=== PATIENT | male | born 1980 | race African-American/Black ===

== ENCOUNTER 2016-12-03 12:42 | Emergency (ER) | payer SELFPAY ==
[~2016-12-03] VITALS: Ht 188 cm; Wt 87.0 kg
[2016-12-03 13:03] VITALS: BP 100/69
== END 2016-12-03 14:18 | disposition home or self-care (01) ==
LOC: ER 14:01
DX: S01.01XA Laceration without foreign body of scalp, initial encounter (principal); W22.8XXA Striking against or struck by other objects, initial encounter; Y93.89 Activity, other specified; Y92.9 Unspecified place or not applicable; Y99.8 Other external cause status
CPT/HCPCS: 12001; 99283; Z7610; 99282

== ENCOUNTER 2021-06-02 14:44 | Emergency (ER) | payer BC ==
[~2021-06-02] VITALS: Ht 188 cm; Wt 91.0 kg
[2021-06-02] MEDS ORDERED: IBUPROFEN 600MG TABLET PO STA (18:52)
[2021-06-02 19:12] VITALS: BP 142/97
[2021-06-02 19:49] LABS: CLARITY URINE CLEAR (CLEAR); COLOR URINE DARK YELLOW (YELLOW); KETONES URINE NEGATIVE (NEGATIVE); LEUKOCYTE ESTERASE URINE TRACE (NEGATIVE); NITRITE URINE NEGATIVE (NEGATIVE); OCCULT BLOOD URINE NEGATIVE (NEGATIVE); PH URINE 6.5 (4.5-8.0); PROTEIN URINE TRACE (NEGATIVE); SPECIFIC GRAVITY URINE 1.017 (1.005-1.030)
== END 2021-06-02 20:54 | disposition home or self-care (01) ==
LOC: ER 14:44
DX: D17.79 Benign lipomatous neoplasm of other sites (principal); J45.909 Unspecified asthma, uncomplicated
CPT/HCPCS: 71045; 81003; 99284; Z7610

== ENCOUNTER 2021-11-08 19:55 | Emergency (ER) | payer BC ==
[~2021-11-08] VITALS: Ht 188 cm; Wt 94.4 kg
[2021-11-08] MEDS ORDERED: ACETAMINOPHEN 325MG TABLET PO ONE (20:15)
[2021-11-08] MEDS ORDERED: KETOROLAC 60MG/2ML VIAL IM ONE (21:45)
[2021-11-08 22:08] VITALS: BP 143/81
[2021-11-08 22:22] LABS: BASOPHILS % 0.9 % (0.0-2.0); EOSINOPHILS % 3.3 % (0.0-5.0); HEMATOCRIT. 47.4 % (42.0-52.0); HEMOGLOBIN. 15.8 g/dL (14.0-18.0); LYMPHOCYTES % 23.4 % (20.0-50.0); MEAN CORPUSCULAR HEMOGLOBIN 28.5 pg (28.0-32.0); MEAN CORPUSCULAR VOLUME 85.4 fL (80.0-94.0); MEAN PLATELET VOLUME 7.9 fl (7.4-10.4); MONOCYTES % 6.7 % (2.0-8.0); NEUTROPHILS % 65.7 % (40.0-76.0); PLATELET 407 x1000/uL (130-400); RED BLOOD CELL COUNT 5.55 mill/uL (4.7-6.1); RED CELL DISTRIBUTION WIDTH 13.9 % (11.6-14.6)
[2021-11-08 22:28] LABS: CHLORIDE 106 mEq/L (98-107)
[2021-11-08] MEDS ORDERED: HYDR-4001 MT (22:54)
== END 2021-11-08 23:35 | disposition home or self-care (01) ==
LOC: ER 19:55
DX: R10.32 Left lower quadrant pain (principal); R07.89 Other chest pain; R00.0 Tachycardia, unspecified; V43.52XA Car driver injured in collision with other type car in traffic accident, initial encounter; Y93.89 Activity, other specified; Y92.488 Other paved roadways as the place of occurrence of the external cause
CPT/HCPCS: 36415; 71045; 74176; 80053; 85025; 93005; 96372; 99285; J1885

== ENCOUNTER 2023-10-19 10:01 | Emergency (ER) | payer BC ==
[~2023-10-19] VITALS: Ht 188 cm; Wt 98.0 kg
[~2023-10-19 10:01] MED LIST: HYDR-4001 MT
[2023-10-19 10:17] VITALS: TEMP 98.2; O2SAT 98
[2023-10-19] MEDS ORDERED: BACITRACIN ZINC OINT UDPKT TOP ONE (10:30)
[2023-10-19] MEDS ORDERED: LIDOCAINE HCL/PF 1% 10 MG/ML 5ML VIAL INFIL ONE (10:30)
[2023-10-19] MEDS ORDERED: TETANUS, DIPHTHERIA, PERTUSSIS VAC/PF 0.5ML (>10YR OLD) IM ONE (10:30)
[2023-10-19] MEDS ORDERED: KETOROLAC 15MG/ML VIAL IM ONE (10:30)
[2023-10-19] MEDS ORDERED: KETOROLAC 15MG/ML VIAL IM NR (12:15)
[2023-10-19] MEDS: TETANUS, DIPHTHERIA, PERTUSSIS VAC/PF 0.5ML (>10YR OLD) IM ONE (13:19)
[2023-10-19 13:20] VITALS: BP 130/97; PULSE 99; RESP 18
[2023-10-19] MEDS: BACITRACIN ZINC OINT UDPKT TOP NR (13:20)
[2023-10-19] MEDS: KETOROLAC 30MG/ML VIAL IM SCH (13:20)
[2023-10-19] MEDS: LIDOCAINE HCL/PF 1% 10 MG/ML 5ML VIAL INFIL NR (13:20)
[2023-10-19] MEDS ORDERED: AMOX1TAB16 MT (13:35)
== END 2023-10-19 14:01 | disposition home or self-care (01) ==
LOC: ER 10:01
DX: L03.012 Cellulitis of left finger (principal)
CPT/HCPCS: 90715; 10060; 90471; 96372; 99284; J1885; J3490; Z7610 ×2

== ENCOUNTER 2024-05-28 16:03 | Emergency (ER) | payer BC ==
[~2024-05-28] VITALS: Ht 188 cm; Wt 97.5 kg
[~2024-05-28 16:03] MED LIST changes: +AMOX1TAB16 MT
[2024-05-28 16:11] VITALS: O2SAT 99
[2024-05-28 18:00] VITALS: BP 124/84; PULSE 80; RESP 16; TEMP 36.83628; O2SAT 99
== END 2024-05-28 18:38 | disposition home or self-care (01) ==
LOC: ER 16:03
DX: S01.112D Laceration without foreign body of left eyelid and periocular area, subsequent encounter (principal); X58.XXXD Exposure to other specified factors, subsequent encounter
CPT/HCPCS: 99281

== ENCOUNTER 2024-12-11 13:40 | Inpatient (IN) | payer BC ==
[~2024-12-11] VITALS: Ht 188 cm; Wt 97.7 kg
[2024-12-11] MEDS: SODIUM CHLORIDE 0.9% 1,000 ML IV ONE ×2 (14:55→17:33)
[2024-12-11 15:00] LABS: BASOPHILS % 0.3 % (0.0-2.0); EOSINOPHILS % 0.4 % (0.0-5.0); HEMATOCRIT. 50.9 % (42.0-52.0); HEMOGLOBIN. 17.1 g/dL (14.0-18.0); LYMPHOCYTES % 11.6 % (20.0-50.0); MEAN CORPUSCULAR HEMOGLOBIN 27.9 pg (28.0-32.0); MEAN CORPUSCULAR HGB CONC 33.6 g/dL (31.0-37.0); MEAN CORPUSCULAR VOLUME 83.2 fL (80.0-94.0); MEAN PLATELET VOLUME 8.2 fl (7.4-10.4); MONOCYTES % 7.8 % (2.0-8.0); NEUTROPHILS % 79.9 % (40.0-76.0); PLATELET 137 x1000/uL (130-400); RED BLOOD CELL COUNT 6.12 mill/uL (4.7-6.1); RED CELL DISTRIBUTION WIDTH 13.1 % (11.6-14.6); WHITE BLOOD COUNT 10.3 x1000/uL (4.5-11.0)
[2024-12-11 15:05] LABS: POTASSIUM 4.3 mEq/L (3.5-5.1)
[2024-12-11 15:06] LABS: CALCIUM 9.5 mg/dL (8.7-10.4)
[2024-12-11 15:12] LABS: TROPONIN I HIGH SENSITIVITY 17 ng/L (3.0-53)
[2024-12-11 15:14] LABS: D-DIMER 9.51 mg/L FEU (<0.50); PARTIAL THROMBOPLASTIN TIME 24.4 sec (23.4-31.0); PROTHROMBIN TIME 10.8 sec (9.6-11.0)
[2024-12-11 15:20] LABS: CREATININE 1.6 mg/dL (0.6-1.3)
[2024-12-11] MEDS: IOHEXOL-350 100 ML BOTTLE ONE (16:56)
[2024-12-11] MEDS ORDERED: ONDANSETRON HCL 4MG/2ML INJ IV PRN (17:15)
[2024-12-11] MEDS ORDERED: DOCUSATE SODIUM 100MG CAPSULE PO PRN (17:15)
[2024-12-11] MEDS ORDERED: IPRATROPIUM/ALBUTEROL 0.5-3(2.5)MG/3ML NEB HHN PRN (17:15)
[2024-12-11] MEDS ORDERED: DEXTROSE 50% WATER 50ML SYRINGE IV PRN (17:15)
[2024-12-11] MEDS ORDERED: ACETAMINOPHEN 325MG TABLET PO PRN ×2 (17:15)
[2024-12-11] MEDS: SODIUM CHLORIDE 0.9% 1,000 ML IV SCH (17:35)
[2024-12-11 17:59] LABS: PHOSPHORUS 2.1 mg/dL (2.5-4.9)
[2024-12-11 18:35] VITALS: BP 126/71; PULSE 120; RESP 15; TEMP 37
[2024-12-11 20:00] VITALS: BP 132/93; PULSE 104; RESP 16; TEMP 36.8; O2SAT 97
[2024-12-11] MEDS: BLOOD SUGAR DIAGNOSTIC STRIP TEST SCH (21:20)
[2024-12-12] VITALS: BP 146/94; PULSE 104; RESP 17; TEMP 36.9; O2SAT 95
[2024-12-12 00:31] LABS: CREATINE KINASE MB FRACTION 2.3 ng/mL (0.5-3.6)
[2024-12-12 04:00] VITALS: BP 135/97; PULSE 95; RESP 20; TEMP 36.9; O2SAT 95
[2024-12-12 06:17] LABS: BASOPHILS % 0.8 % (0.0-2.0); EOSINOPHILS % 1.7 % (0.0-5.0); HEMOGLOBIN. 14.8 g/dL (14.0-18.0); LYMPHOCYTES % 19.2 % (20.0-50.0); MEAN CORPUSCULAR HEMOGLOBIN 27.4 pg (28.0-32.0); MEAN PLATELET VOLUME 8.3 fl (7.4-10.4); MONOCYTES % 11.8 % (2.0-8.0); NEUTROPHILS % 66.5 % (40.0-76.0); PLATELET 127 x1000/uL (130-400); RED BLOOD CELL COUNT 5.43 mill/uL (4.7-6.1); RED CELL DISTRIBUTION WIDTH 13.1 % (11.6-14.6); WHITE BLOOD COUNT 7.1 x1000/uL (4.5-11.0)
[2024-12-12 06:20] LABS: CHLORIDE 104 mEq/L (98-107); POTASSIUM 3.6 mEq/L (3.5-5.1); SODIUM 140 mEq/L (136-145)
[2024-12-12 06:21] LABS: CARBON DIOXIDE 24 mEq/L (21-32)
[2024-12-12 06:25] LABS: CREATINE KINASE MB FRACTION 1.9 ng/mL (0.5-3.6)
[2024-12-12 06:26] LABS: GLUCOSE 113 mg/dL (70-105); TRIGLYCERIDE 171 mg/dL (0-150); UREA NITROGEN BLOOD 11 mg/dL (9-23)
[2024-12-12 06:27] LABS: LDL CHOLESTEROL 75 mg/dL (5-100)
[2024-12-12 06:28] LABS: CHOLESTEROL 143 mg/dL (<200); HDL CHOLESTEROL 42 mg/dL (>55); T4 FREE 0.95 ng/dL (0.89-1.76)
[2024-12-12 06:30] LABS: THYROID STIMULATING HORMONE 1.66 uIU/mL (0.55-4.78)
[2024-12-12 06:40] LABS: CALCIUM 8.7 mg/dL (8.7-10.4)
[2024-12-12 08:00] VITALS: BP 152/101; PULSE 92; RESP 16; TEMP 36.7; O2SAT 96
[2024-12-12] MEDS: ENOXAPARIN 40MG/0.4ML SYR SUBCUT SCH (08:45)
[2024-12-12] MEDS: CLONIDINE 0.1MG TABLET PO PRN (09:06)
[2024-12-12] MEDS: PANTOPRAZOLE SODIUM 40 MG/VIAL IV SCH (09:17)
[2024-12-12 12:00] VITALS: BP 113/82; PULSE 98; RESP 21; TEMP 36.7; O2SAT 96
[2024-12-12 16:00] VITALS: BP 133/89; PULSE 84; RESP 17; TEMP 36.7; O2SAT 95
[2024-12-12 20:00] VITALS: BP 130/80; PULSE 86; RESP 18; TEMP 37.4; O2SAT 97
[2024-12-13] VITALS: BP 130/82; PULSE 86; RESP 21; TEMP 36.9; O2SAT 95
[2024-12-13 04:00] VITALS: BP 123/91; PULSE 75; RESP 12; TEMP 36.9; O2SAT 97
[2024-12-13 07:12] LABS: CARBON DIOXIDE 27 mEq/L (21-32); CHLORIDE 105 mEq/L (98-107); POTASSIUM 3.8 mEq/L (3.5-5.1); SODIUM 142 mEq/L (136-145)
[2024-12-13 07:14] LABS: CALCIUM 8.6 mg/dL (8.7-10.4)
[2024-12-13 07:15] LABS: HEMATOCRIT 40.5 % (42.0-52.0); HEMOGLOBIN 13.6 g/dL (14.0-18.0); MEAN CORPUSCULAR HGB CONC 33.6 g/dL (31.0-37.0); MEAN CORPUSCULAR VOLUME 83.3 fL (80.0-94.0); PLATELET 102 x1000/uL (130-400); RED BLOOD CELL COUNT 4.86 mill/uL (4.7-6.1); RED CELL DISTRIBUTION WIDTH 12.9 % (11.6-14.6); WHITE BLOOD COUNT 6.7 x1000/uL (4.5-11.0)
[2024-12-13 07:17] LABS: CREATININE 0.8 mg/dL (0.6-1.3)
[2024-12-13 07:18] LABS: GLUCOSE 101 mg/dL (70-105); UREA NITROGEN BLOOD 10 mg/dL (9-23)
[2024-12-13 08:00] VITALS: BP 142/96; PULSE 71; RESP 11; TEMP 36.7; O2SAT 99
[2024-12-13] MEDS ORDERED: AMLO5TAB5 MT (10:56)
[2024-12-13 11:29] VITALS: BP 142/96; PULSE 99; TEMP 98; O2SAT 100
== END 2024-12-13 12:06 | disposition home or self-care (01) | DRG 392 ==
LOC: ER 13:40 → 3WST 16:33 → EDBEDREQ 16:41 → EDBEDREQTM 16:41
PROVIDERS: ADMIT Internal Medicine; ATTEND Internal Medicine
DX: K52.9 Noninfective gastroenteritis and colitis, unspecified (principal); N17.9 Acute kidney failure, unspecified; E86.0 Dehydration; D75.1 Secondary polycythemia; I48.0 Paroxysmal atrial fibrillation; J45.909 Unspecified asthma, uncomplicated; I95.9 Hypotension, unspecified; F10.10 Alcohol abuse, uncomplicated; Y90.9 Presence of alcohol in blood, level not specified; Z82.49 Family history of ischemic heart disease and other diseases of the circulatory system; Z79.899 Other long term (current) drug therapy
CPT/HCPCS: 36415; 71045; 71275; 74174; 80048; 80061; 82550; 82553; 82962; 83036; 83605; 83735; 83880; 84100; 84145; 84439; 84443; 84484; 85025; 85027; 85379; 86850; 86900; 96360; 96361; 99291; A4606; J1650; J2470; J7030; Q9967

== ENCOUNTER 2025-03-03 07:47 | Inpatient (IN) | payer BC ==
[~2025-03-03] VITALS: Ht 188 cm; Wt 98.4 kg
[~2025-03-03 07:47] MED LIST changes: +AMLO5TAB5 MT; -AMOX1TAB16 MT; -HYDR-4001 MT
[2025-03-03] MEDS ORDERED: FAMOTIDINE 20MG/2ML VIAL IV ONE (08:30)
[2025-03-03] MEDS ORDERED: KETOROLAC 15MG/ML VIAL IV ONE (08:30)
[2025-03-03] MEDS ORDERED: MAGNESIUM/ALUMINUM HYDROXIDE/SIMETHICONE 30ML UDC PO ONE (08:30)
[2025-03-03] MEDS ORDERED: ONDANSETRON 4MG ODT PO ONE (08:30)
[2025-03-03] MEDS ORDERED: ACETAMINOPHEN 325MG TABLET PO ONE (08:30)
[2025-03-03 08:33] LABS: BASOPHILS % 0.8 % (0.0-2.0); EOSINOPHILS % 0.1 % (0.0-5.0); HEMATOCRIT. 45.6 % (42.0-52.0); HEMOGLOBIN. 14.6 g/dL (14.0-18.0); LYMPHOCYTES % 10.8 % (20.0-50.0); MEAN PLATELET VOLUME 7.8 fl (7.4-10.4); MONOCYTES % 3.9 % (2.0-8.0); NEUTROPHILS % 84.4 % (40.0-76.0); PLATELET 286 x1000/uL (130-400); RED BLOOD CELL COUNT 5.12 mill/uL (4.7-6.1); RED CELL DISTRIBUTION WIDTH 15.9 % (11.6-14.6)
[2025-03-03] MEDS: SODIUM CHLORIDE 0.9% 1,000 ML IV ONE (08:41)
[2025-03-03] MEDS: ONDANSETRON 4MG ODT PO NR (08:58)
[2025-03-03] MEDS: KETOROLAC 15MG/ML VIAL IV NR (08:58)
[2025-03-03] MEDS: MAGNESIUM/ALUMINUM HYDROXIDE/SIMETHICONE 30ML UDC PO NR (08:58)
[2025-03-03] MEDS: ACETAMINOPHEN 325MG TABLET PO NR (08:58)
[2025-03-03 09:02] LABS: CREATININE 1.2 mg/dL (0.6-1.3); TROPONIN I HIGH SENSITIVITY 4 ng/L (3.0-53); UREA NITROGEN BLOOD 13 mg/dL (9-23)
[2025-03-03 09:02] LABS: CLARITY URINE CLEAR (CLEAR); COLOR URINE YELLOW (YELLOW); GLUCOSE URINE NEGATIVE (NEGATIVE); KETONES URINE 3+ (NEGATIVE); LEUKOCYTE ESTERASE URINE NEGATIVE (NEGATIVE); NITRITE URINE NEGATIVE (NEGATIVE); OCCULT BLOOD URINE 1+ (NEGATIVE); PH URINE 5.0 (4.5-8.0); PROTEIN URINE 1+ (NEGATIVE); SPECIFIC GRAVITY URINE 1.015 (1.005-1.030); UROBILINOGEN URINE 0.2 E.U./dL (0.2-1.0)
[2025-03-03 09:04] LABS: ASPARTATE AMINOTRANSFERASE 86 IU/L (<34); BILIRUBIN DIRECT 0.3 mg/dL (<=3.0); BILIRUBIN TOTAL 0.8 mg/dL (0.1-1.0); PROTEIN TOTAL 7.8 g/dL (6.0-8.3)
[2025-03-03] MEDS: LORAZEPAM 2MG/ML UD SYRINGE IV NR (09:32)
[2025-03-03 09:44] LABS: BACTERIA URINE NONE SEEN; HYALINE CASTS URINE 0-5 /lpf; RBC URINE 0-2 /hpf (0-2); SQUAMOUS EPITHELIAL CELL URINE RARE /lpf (RARE/1+); WBC URINE 0-2 /hpf (0-2); YEAST URINE NONE SEEN
[2025-03-03] MEDS: FAMOTIDINE 20MG/2ML VIAL IV NR (09:44)
[2025-03-03] MEDS: FOLIC ACID 1 MG, THIAMINE HCL 100 MG, MVI, ADULT NO.1 10 ML in DEXTROSE 5% WATER 1,000 ML IV ONE (09:44)
[2025-03-03] MEDS ORDERED: ONDANSETRON HCL 4MG/2ML INJ IV PRN (10:15)
[2025-03-03] MEDS ORDERED: LACTATED RINGERS 1,000 ML IV ONE (10:30)
[2025-03-03] MEDS ORDERED: ACETAMINOPHEN 325MG TABLET PO PRN ×2 (10:45)
[2025-03-03] MEDS ORDERED: DOCUSATE SODIUM 100MG CAPSULE PO PRN (10:45)
[2025-03-03] MEDS ORDERED: CLONIDINE 0.1MG TABLET PO PRN (10:45)
[2025-03-03] MEDS ORDERED: GUAIFENESIN 200MG/10ML SUGAR FREE UDC PO PRN (10:45)
[2025-03-03] MEDS ORDERED: IPRATROPIUM/ALBUTEROL 0.5-3(2.5)MG/3ML NEB HHN PRN (10:45)
[2025-03-03] MEDS ORDERED: MAGNESIUM/ALUMINUM HYDROXIDE/SIMETHICONE 30ML UDC PO PRN (10:45)
[2025-03-03 10:50] LABS: TROPONIN I HIGH SENSITIVITY 6 ng/L (3.0-53)
[2025-03-03 10:51] LABS: ETHANOL BLOOD 42 mg/dL (<10)
[2025-03-03 10:54] LABS: PHOSPHORUS 4.5 mg/dL (2.5-4.9)
[2025-03-03 12:00] VITALS: BP 147/83; PULSE 112; RESP 18; TEMP 36.6; O2SAT 98
[2025-03-03] MEDS: MULTIVITAMINS,THER W-MINERALS TABLET PO SCH (12:00)
[2025-03-03] MEDS: FOLIC ACID 1MG TABLET PO SCH (12:01)
[2025-03-03] MEDS: THIAMINE HCL 100MG TABLET PO SCH (12:01)
[2025-03-03] MEDS: ENOXAPARIN 40MG/0.4ML SYR SUBCUT SCH (12:03)
[2025-03-03] MEDS: DEXT 5%/LACTATED RINGERS 1,000 ML IV ONE (12:14)
[2025-03-03] MEDS: CHLORDIAZEPOXIDE 25MG CAPSULE PO SCH (13:35)
[2025-03-03 14:01] LABS: BG DEOXYHEMOGLOBIN 16.5 % (0.0-5.0)
[2025-03-03 15:19] LABS: *AMPHETAMINES SCREEN URINE NEGATIVE (NEGATIVE); *BARBITURATES SCREEN URINE NEGATIVE (NEGATIVE); *BENZODIAZEPINES SCREEN URINE NEGATIVE (NEGATIVE); *COCAINE SCREEN URINE NEGATIVE (NEGATIVE); CANNABINOID URINE SCREEN NEGATIVE (NEGATIVE); ECSTASY MDMA SCREEN URINE NEGATIVE (NEGATIVE); METHADONE URINE SCREEN NEGATIVE (NEGATIVE); OPIATES URINE SCREEN NEGATIVE (NEGATIVE); PHENCYCLIDINE URINE SCREEN NEGATIVE (NEGATIVE)
[2025-03-03 16:00] VITALS: BP 138/84; PULSE 108; RESP 16; TEMP 36.7; O2SAT 97
[2025-03-03 17:45] LABS: TROPONIN I HIGH SENSITIVITY 9 ng/L (3.0-53)
[2025-03-03 19:27] VITALS: BP 147/83; PULSE 112; RESP 18; TEMP 36.4736
[2025-03-03 20:00] VITALS: BP 134/92; PULSE 92; RESP 16; TEMP 37; O2SAT 98
[2025-03-03] MEDS: AMLODIPINE 5MG TABLET PO SCH (21:05)
[2025-03-04] VITALS: BP 145/92; PULSE 85; RESP 16; TEMP 36.8; O2SAT 98
[2025-03-04 00:09] LABS: TROPONIN I HIGH SENSITIVITY 8 ng/L (3.0-53)
[2025-03-04 04:00] VITALS: BP 142/99; PULSE 93; RESP 18; TEMP 36.9; O2SAT 98
[2025-03-04 07:50] LABS: BASOPHILS % 0.5 % (0.0-2.0); EOSINOPHILS % 3.3 % (0.0-5.0); HEMATOCRIT. 42.3 % (42.0-52.0); HEMOGLOBIN. 13.9 g/dL (14.0-18.0); LYMPHOCYTES % 24.2 % (20.0-50.0); MEAN PLATELET VOLUME 7.9 fl (7.4-10.4); MONOCYTES % 8.9 % (2.0-8.0); NEUTROPHILS % 63.1 % (40.0-76.0); PLATELET 209 x1000/uL (130-400); RED BLOOD CELL COUNT 4.91 mill/uL (4.7-6.1); RED CELL DISTRIBUTION WIDTH 15.4 % (11.6-14.6)
[2025-03-04 07:53] LABS: CREATININE 1.1 mg/dL (0.6-1.3); T4 FREE 1.20 ng/dL (0.89-1.76); TRIGLYCERIDE 74 mg/dL (0-150); UREA NITROGEN BLOOD 10 mg/dL (9-23)
[2025-03-04 07:54] LABS: LDL CHOLESTEROL 49 mg/dL (5-100)
[2025-03-04 08:00] VITALS: BP 139/94; PULSE 83; RESP 18; TEMP 36.6; O2SAT 96
[2025-03-04] MEDS: PANTOPRAZOLE SODIUM 40 MG/VIAL IV SCH (08:14)
[2025-03-04] MEDS ORDERED: LORAZEPAM 2MG/ML UD SYRINGE IV PRN (09:02)
[2025-03-04 12:00] VITALS: BP 142/80; PULSE 82; RESP 18; TEMP 36.7; O2SAT 97
[2025-03-04] MEDS ORDERED: THIA100T72 PO (15:29)
[2025-03-04] MEDS ORDERED: AMLO5TAB5 MT (15:29)
[2025-03-04] MEDS ORDERED: FOLI-43 PO (15:29)
[2025-03-04 16:24] VITALS: BP 142/80; PULSE 82; TEMP 98; O2SAT 97
== END 2025-03-04 17:09 | disposition home or self-care (01) | DRG 641 ==
LOC: ER 07:47 → 5WST 09:42 → EDBEDREQTM 09:55 → EDBEDREQ 09:55 → EDBEDREQSVC 09:55 → ENRESERV 10:12
PROVIDERS: ADMIT Internal Medicine; ATTEND Internal Medicine
DX: E87.29 Other acidosis (principal); N17.9 Acute kidney failure, unspecified; E16.2 Hypoglycemia, unspecified; E87.1 Hypo-osmolality and hyponatremia; E87.21 Acute metabolic acidosis; E86.0 Dehydration; F10.129 Alcohol abuse with intoxication, unspecified; I10 Essential (primary) hypertension; K76.0 Fatty (change of) liver, not elsewhere classified; M48.07 Spinal stenosis, lumbosacral region; I48.0 Paroxysmal atrial fibrillation; J45.909 Unspecified asthma, uncomplicated; Y90.9 Presence of alcohol in blood, level not specified; Z82.49 Family history of ischemic heart disease and other diseases of the circulatory system
CPT/HCPCS: 36415; 71045; 74176; 80048; 80061; 80076; 80305; 80320; 81003; 82010; 82375; 82550; 82803; 82962; 83735; 84100; 84439; 84443; 84484; 85025; 93005; 99291; A4606; J1308; J1650; J1885; J2060; J2470; J3411; J3490; J7030; J7070; Q0162; G0480